=== PATIENT | male | born 1950 | race Caucasian/White ===

== ENCOUNTER → 2024-04-13 08:37 | Outpatient (BNVA) | payer MEDICARE, BC, SELFPAY | PROVIDERS: PCP Family Medicine; Referring Provider Family Medicine; Visit Provider Podiatrist | DX: L97.322 Non-pressure chronic ulcer of left ankle with fat layer exposed (principal); E11.622 Type 2 diabetes mellitus with other skin ulcer; N18.30 Chronic kidney disease, stage 3 unspecified; I12.9 Hypertensive chronic kidney disease with stage 1 through stage 4 chronic kidney disease, or unspecified chronic kidney disease; I50.9 Heart failure, unspecified; D63.1 Anemia in chronic kidney disease; E11.9 Type 2 diabetes mellitus without complications | CPT/HCPCS: 11042; 29580; 99204; 29850 ==

== ENCOUNTER 2024-04-14 02:07 | Outpatient (CLI) | payer MEDICARE, BC, SELFPAY ==
--- NOTE | 2024-04-14 08:59 | DI.RAD_ITS ---
Exam(s) XR ANKLE LT COMPLETE EXAM: XR ANKLE LT COMPLETE CLINICAL HISTORY: ? osteomyelitis fibula,non healing ulcer lt lower ext,L97.602 TECHNIQUE: 2D digital imaging was performed of the left ankle. Three images were obtained. AP, lat eral and oblique views were obtained. COMPARISON: No exams were available for comparison FINDINGS: BONES: No acute fracture is present. No bony destructive lesion is seen. There is an enthesophyte at the posterior calcaneus. JOINTS:The ankle mortise is normally aligned. SOFT TISSUE: There is soft tissue swelling about the ankle particularly laterally. No soft tissue ga s is seen. IMPRESSION: No radiographic evidence to suggest acute osteomyelitis. DATA REPOSITORY: RADIATION DOSE DELIVERED:
--- NOTE | 2024-04-14 09:00 | DI.RAD_ITS ---
Exam(s) XR CHEST 2V PA LATERAL EXAM: XR CHEST 2V PA LATERAL CLINICAL HISTORY: pre-op clearance, dx of CHF,z01.818 TECHNIQUE: 2D digital imaging was performed of the chest. Two images were obtained. PA and lateral views were obtained. COMPARISON: No exams were available for comparison FINDINGS: MEDIASTINUM: Normal. HEART: Normal. PULMONARY VASCULATURE: Normal. LUNGS: Clear. PLEURAL SPACE: No pleural effusion or pneumothorax. BONE:Within normal limits for the patient's age. OTHER FINDINGS:Normal. IMPRESSION: No acute pulmonary findings. DATA REPOSITORY: RADIATION DOSE DELIVERED:
--- NOTE | 2024-04-14 09:00 | DI.RAD_ITS ---
Exam(s) XR ANKLE RT COMPLETE EXAM: XR ANKLE RT COMPLETE CLINICAL HISTORY: Comparison views,pain rt ankle, m25.571. TECHNIQUE: 2D digital imaging was performed of the right ankle. Three images were obtained. AP, la teral and oblique views were obtained. COMPARISON: No exams were available for comparison FINDINGS: BONES: No acute fracture is present. No bony destructive lesion is seen. There is a small posterior calcaneal enthesophyte. JOINTS: The ankle mortise is normally aligned. SOFT TISSUE: Normal. IMPRESSION: No acute abnormality. DATA REPOSITORY: RADIATION DOSE DELIVERED:
[2024-04-14 09:43] LABS: Abs Immature Grans 0.04 10^3/uL (0.0-0.06); Absolute Basophil Count 0.07 10^3/uL (0.0-0.2); Absolute Eosinophil Count 0.59 10^3/uL (0.0-0.7); Absolute Lymphocyte Count 1.21 10^3/uL (1.2-3.4); Absolute Neutrophil Count 4.99 10^3/uL (1.2-6.7); Basophils % 0.9 %; Eosinophils % 7.8 %; HCT 41.5 % (40.0-50.0); HGB 13.3 g/dL (13.5-17.5); Immature Grans % 0.5 %; Lymphocytes % 15.9 %; MCV 94 fL (80-95); MPV 11.5 fL (8.0-11.0); Monocytes % 9.2 %; Neutrophils % 65.7 %; Platelet Count 170 10^3/uL (130-400); RBC 4.44 10^6/uL (4.36-5.78); RDW 15.1 % (11.8-14.1); RDW-SD 51.1 fL
[2024-04-14 11:10] LABS: ALT 24 U/L (16-63); AST 20 U/L (15-37); Albumin 3.2 g/dL (3.4-5.0); Alkaline Phosphatase 122 U/L (46-116); Anion Gap 9.9 mmol/L (3-11); BUN 27 mg/dL (7-18); Bilirubin, Total 0.33 mg/dL (0.2-1.0); CO2 25.1 mmol/L (21.0-32.0); CREATININE 1.8 mg/dL (0.70-1.30); Calcium 9.6 mg/dL (8.5-10.1); Chloride 108 mmol/L (98-107); Estimated GFR 38.77 (mL/min/1.73m2); Glucose 201 mg/dL (74-106); Potassium 4.7 mmol/L (3.5-5.1); Sodium 143 mmol/L (136-145); Total Protein 7.6 g/dL (6.4-8.2)
== END 2024-04-14 02:27 ==
LOC: DI 02:08
PROVIDERS: PCP Family Medicine; Visit Provider Podiatrist
DX: Z01.818 Encounter for other preprocedural examination; M25.571 Pain in right ankle and joints of right foot; M25.572 Pain in left ankle and joints of left foot
CPT/HCPCS: 36415; 80053; 71046; 73610; 85025

== ENCOUNTER 2024-04-19 05:46 | Day surgery (SDC) | payer MEDICARE, BC, SELFPAY ==
[2024-04-19] VITALS (22 sets, daily range): BP systolic 117–160; BP diastolic 44–69; PULSE 69–87; RESP 16–28; TEMP 36–36.5; O2SAT 92–96; BMI 33.0
--- NOTE | 2024-04-19 06:44 | ANES.PREOP_ITS ---
General Info Date of Service Date Performed: 04/19/24 Height: 5 ft 7 in Weight: 95.7 kg Body Mass Index (BMI): 33.0 Surgical Procedure: Operation Date: 04/19/24 07:40 Proposed Procedure Side Surgeon p Excisional Wound Debridement, Possible Tissue Biopsy Ankle Left Kitty Mccoy DPM Meds Allergies and Home Medications Allergies Allergy/AdvReac Type Severity Reaction Status Date / Time No Known Allergies Allergy Verified 04/19/24 06:13 Home Medication ?Medication ?Instructions ?Recorded allopurinol 300 mg tablet 300 mg PO DAILY 04/05/24 amlodipine 10 mg tablet 10 mg PO DAILY 04/05/24 colchicine 0.6 mg tablet 0.6 mg PO DAILY 04/05/24 empagliflozin 10 mg tablet 10 mg PO DAILY 04/05/24 (Jardiance) folic acid 1 mg tablet 1 mg PO DAILY 04/05/24 gemfibrozil 600 mg tablet 600 mg PO DAILY 04/05/24 insulin aspart U-100 100 unit/mL 13 unit subcut TID 04/05/24 subcutaneous solution (Novolog U-100 Insulin aspart) insulin glargine 100 unit/mL (3 80 unit subcut BID 04/05/24 mL) subcutaneous pen (Lantus Solostar U-100 Insulin) metoprolol tartrate 50 mg tablet 50 mg PO BID 04/05/24 multivitamin 1 tab PO DAILY 04/05/24 olmesartan 20 mg tablet 20 mg PO DAILY 04/05/24 oxycodone 5 mg tablet 5 mg PO Q6H PRN 04/05/24 rosuvastatin 10 mg tablet 10 mg PO DAILY 04/05/24 sitagliptin phosphate 100 mg 100 mg PO DAILY 04/05/24 tablet (Januvia) tamsulosin 0.4 mg capsule 0.4 mg PO DAILY 04/05/24 torsemide 20 mg tablet 20 mg PO BID 04/05/24 collagenase clostridium histo. 250 1 applic topical DAILY #30 grams 04/14/24 unit/gram topical ointment (Santyl) Current Visit Medications: Current Medications Generic Name Dose Route Start Last Admin Trade Name Freq PRN Reason Stop Dose Admin Ringer's Solution 1,000 mls @ 30 mls/hr 04/19/24 06:00 IV 04/19/24 23:59 INFUSION RAFIA Cefazolin Sodium/Dextrose 2 gm in 50 mls @ 100 mls/hr 04/19/24 06:00 Ancef Duplex IVPB 04/19/24 23:59 PREOP RAFIA IV Miscellaneous Supplies 1 each 04/19/24 06:00 Iv Access IV 04/19/24 23:59 DIRECTED RAFIA Sodium Chloride 0 ml 04/19/24 06:00 Normal Saline Flush 10 Ml Syr IV 04/19/24 23:59 PRN PRN Sodium Chloride 0 ml 04/19/24 06:00 Normal Saline 10 Ml Vial IJ 04/19/24 23:59 DIRECTED PRN Sterile Water 0 ml 04/19/24 06:00 Water,Injection,Sterile 10 Ml Vial IJ 04/19/24 23:59 DIRECTED PRN PFSH Active Problems Active Problems: Problem Status Onset Code Pain in right ankle Acute M25.571 Diabetic ulcer of left ankle Acute E11.622, L97.329 Nonhealing ulcer of left lower extremity Acute L97.929 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 Acute L97.322 Ulcer of left lower extremity Acute L97.929 Mixed hyperlipidemia Acute E78.2 Enlarged prostate Acute N40.0 HTN (hypertension) Chronic I10 Hyperparathyroidism Acute E21.3 Hypercalcemia Acute E83.52 Gout Chronic M10.9 Glaucoma Chronic H40.9 Enthesopathy of hip region Acute M76.899 Stage 3 chronic kidney disease due to benign hypertension Acute I12.9, N18.30 CHF (congestive heart failure) Chronic I50.9 Atopic dermatitis Acute L20.9 Arthritis Acute M19.90 Anemia in CKD (chronic kidney disease) Acute N18.9, D63.1 Acid reflux Chronic K21.9 Type 2 diabetes mellitus Acute E11.9 Medical History Medical History Pemphigoid, benign mucous membrane ROXANA (acute kidney injury) Psychosexual dysfunction with inhibited sexual excitement Olecranon bursitis Surgical History Surgical History History of testicular surgery History of shoulder surgery right History of varicose vein ligation Tobacco Smoking/Tobacco Use Status: Former Tobacco Use Alcohol Alcohol Intake: current Alcohol intake frequency: a few times a month Substance Use Substance use: Never Vital Signs and Lab Results Vital Signs Most Recent Vital Signs in EMR: Most Recent Vital Signs Temp Pulse Resp BP Pulse Ox 36.5 C 69 18 125/59 L 96 04/19/24 06:20 04/19/24 06:20 04/19/24 06:20 04/19/24 06:20 04/19/24 06:20 Point of Care Results Point of Care Results: Finger Stick Blood Glucose 104 04/19/24 06:33 Lab Results Blood Type / Crossmatch: No Data to Display Complete Blood Count: White Blood Count 7.60 10^3/uL (4.4-10.8) 04/14/24 09:28 Red Blood Count 4.44 10^6/uL (4.36-5.78) 04/14/24 09:28 Hemoglobin 13.3 g/dL (13.5-17.5) L 04/14/24 09:28 Hematocrit 41.5 % (40.0-50.0) 04/14/24 09:28 Platelet Count 170 10^3/uL (130-400) 04/14/24 09:28 Complete Metabolic Panel: Sodium 143 mmol/L (136-145) 04/14/24 09:28 Potassium 4.7 mmol/L (3.5-5.1) 04/14/24 09:28 Chloride 108 mmol/L (98-107) H 04/14/24 09:28 Carbon Dioxide 25.1 mmol/L (21.0-32.0) 04/14/24 09:28 BUN 27 mg/dL (7-18) H 04/14/24 09:28 Creatinine 1.8 mg/dL (0.70-1.30) H 04/14/24 09:28 Est GFR (CKD-EPI 2020) 38.77 (mL/min/1.73m2) 04/14/24 09:28 Calcium 9.6 mg/dL (8.5-10.1) 04/14/24 09:28 Albumin 3.2 g/dL (3.4-5.0) L 04/14/24 09:28 Glucose 201 mg/dL (74-106) H 04/14/24 09:28 Hemoglobin A1c 6.7 % (4.5-5.7) H 04/09/24 11:14 Liver Function Panel: Alanine Aminotransferase (ALT/SGPT) 24 U/L (16-63) 10/16/24 09: 28 Aspartate Amino Transf (AST/SGOT) 20 U/L (15-37) 04/14/24 09:28 Coagulation Panel: No Data to Display Cardiac Panel: No Data to Display Arterial Blood Gas: No Data to Display Venous Blood Gas: No Data to Display Pancreas Panel: No Data to Display Thyroid Panel: No Data to Display Infectious Disease: No Data to Display Blood Cultures: No Data to Display Toxicology Panel: No Data to Display Anesthesia Assessment and Plan Anesthesia History Personal History: No History of Anesthesia Complications Family History: No Family History of Anesthesia Complications Exercise Tolerance Exercise Tolerance: Metabolic Equivalents>4 Pertinent Negatives Pertinent Negatives: No Symptoms of GERD Cardiac & Pulmonary Exam Cardiac Exam: Normal S1/S2 Heart Sounds Pulmonary Exam: Clear Bilateral Breath Sounds Implantable Cardiac Device Does patient have a Pacemaker or an ICD?: No Airway Exam Known Difficult Airway: No Mallampati Class: 2 Mouth Opening: Normal (> 3cm) Thyromental Distance: Greater than 3 cm Neck Range of Motion: Full ROM Neck Circumference: Thick Teeth Condition: Normal Dentition ASA Classification ASA Score: ASA 3 Emergency Case?: No NPO Status NPO Status: NPO Clears >2 hours, Solids >8 hours Anesthesia Plan Resuscitation Status: Full Code Anesthesia Technique: General Anesthesia Airway Planned: LMA Monitors Used: Standard Monitors
[2024-04-19] MEDS: Lactated Ringers 1,000 ML 30 ML IV (06:49)
[2024-04-19] MEDS: ceFAZolin 2 GM/50 ML BAG IVPB (07:37)
[2024-04-19] MEDS: Lidocaine 1% Pres-Free 30 ML VIAL (07:54)
--- NOTE | 2024-04-19 08:34 | PDOC.DSDIS_ITS ---
Date of service: 04/19/24 Time of Service: 07:30 Discharge Plan Disposition Patient Disposition: Home Condition: Stable Discharge Details Attending Provider: Kitty Mccoy Primary Care Provider: Tommie Metzger Gilman Meds and New Rx's Prescriptions: No Action allopurinol 300 mg tablet 300 mg PO DAILY amlodipine 10 mg tablet 10 mg PO DAILY colchicine 0.6 mg tablet 0.6 mg PO DAILY folic acid 1 mg tablet 1 mg PO DAILY gemfibrozil 600 mg tablet 600 mg PO DAILY Januvia 100 mg tablet 100 mg PO DAILY Jardiance 10 mg tablet 10 mg PO DAILY insulin glargine [Lantus Solostar U-100 Insulin] 100 unit/mL (3 mL) insulin pen 80 unit subcut BID metoprolol tartrate 50 mg tablet 50 mg PO BID multivitamin Tablet 1 tab PO DAILY insulin aspart U-100 [Novolog U-100 Insulin aspart] 100 unit/mL solution 13 unit subcut TID Rx Instructions: AC, TID olmesartan 20 mg tablet 20 mg PO DAILY rosuvastatin 10 mg tablet 10 mg PO DAILY oxycodone 5 mg tablet 5 mg PO Q6H PRN tamsulosin 0.4 mg capsule 0.4 mg PO DAILY torsemide 20 mg tablet 20 mg PO BID Santyl 250 unit/gram ointment 1 applic topical DAILY Qty: 30 5RF Rx Instructions: Left Heel wound measurements: 4.8cm x 3.5cm. L lateral Ankle wound measurements: 6.6cm x 3.0cm Discharge Instructions Stand Alone Forms: Podiatry Instructions-DSU Equipment/Supplies: Non-Weight Bearing Crutches Activity:: Elevate Remove Dressings/Wound Care:: Do Not Remove Shower/Bathe:: Cover Diet:: Normal Diet Discharge Orders Discharge Orders: Discharge Order (Routine); Ordered 04/19/24 Ordered By: Kitty Mccoy DS: Diagnosis Discharge Diagnosis (1) Diabetic ulcer of left ankle: Status: Acute (2) Nonhealing ulcer of left lower extremity: Status: Acute (3) 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: Status: Acute (4) Ulcer of left lower extremity: Status: Acute (5) Pressure ulcer with necrosis of soft tissues through to underlying muscle, tendon, or bone: Status: Acute
[2024-04-19] MEDS: fentaNYL 100 MCG/2 ML VIAL IVP ×2 (08:40→08:52)
--- NOTE | 2024-04-19 09:24 | W.ANESPOSTOP ---
Postoperative Evaluation Date, Time and Location Date Performed: 04/19/24 Time Performed: 09:24 Patient Location: Day Surgery Unit Vital Signs Most Recent Imported Vital Signs: Most Recent Vital Signs Temp Pulse Resp BP Pulse Ox 36.0 C L 87 28 H 146/69 H 94 04/19/24 09:13 04/19/24 09:13 04/19/24 09:13 04/19/24 09:13 04/19/24 09:13 Pain Score Most Recent Pain Score: Most Recent Pain Score Pain Level 1 04/19/24 08:58 Assessment Mental Status: Awake (Alert & Oriented to Patient Baseline) Airway and Respiratory Function: Patent airway with normal (patient baseline) respiratory exam Cardiovascular Function: Hemodynamically Stable Hydration Status: Adequately Hydrated Nausea & Vomiting: No Nausea or Vomiting Pain: Pt. Denies Any Pain Peripheral Nerve Block: Patient did not receive a nerve block
--- NOTE | 2024-04-19 09:46 | W.PM.OP ---
Date of service: 04/19/24 Time of Service: 07:30 Operative Note Operative Note DATE OF PROCEDURE: 04/19/24 PRE-OP DIAGNOSIS: 1. Full thickness ulcer, achilles tendon exposed, left ankle. 2. Full thickness ulcer, fat layer exposed, lateral ankle, left PROCEDURE: Excisional wound debridement, including tendon and subcutaneous tissue, left ankle SURGEON: Kitty Mccoy ANESTHESIA TYPE: Local By Surgeon (20 mL 1% lidocaine plain preoperatively) Refer to Anesthesia Record ESTIMATED BLOOD LOSS: 5 COMPLICATIONS: None Patient was transported to: PACU Patient's condition: stable Findings: Left lateral ankle ulcer measures 6.5 x 2.5 x 0.3 cm, postdebridement, the base is granular with healthy bleeding tissue noted. The borders are irregular, there is no periwound erythema, there is edema, no probe to bone or capsule, no tunneling no undermining, no bogginess, no crepitus no fluctuance no proximal streaking. No purulence no malodor Left posterior heel wound measures 4.0 x 3.5 x 0.4 cm, there is 2.0 x 4.0 cm Achilles tendon exposed, the base of the wound around the tendon is healthy, bleeding is granular postdebridement, There is no periwound erythema, there is edema, no probe to bone or capsule, there is Achilles tendon exposed, no proximal streaking, no purulence no malodor Procedure Description: Patient was identified in preop holding. Site was marked. Patient was then brought to the operating room, placed on the operating table supine position with the anesthesia team. After induction of general anesthesia local analgesia was obtained using 20 mL of lidocaine plain preoperatively around the ulcer. The left lower extremity was then scrubbed, prepped and draped in the usual aseptic manner. Attention was directed to the lateral ulcer of the left ankle, the ulcer is noted to be directly overlying the lateral malleolus. Using a sterile #15 blade as well as Versajet sharp, excisional debridement was performed until healthy, bleeding tissue was noted, all necrotic, nonviable tissue including subcutaneous tissue was debrided. A small soft tissue specimen was obtained sharply and sent for cultures. Attention was then directed to the posterior wound where heavy necrotic tissue was noted. The ulcer was debrided using a sterile #15 blade as well as Versajet to excisionally debride all necrotic, nonviable tissue this included subcutaneous tissue around the Achilles tendon as well as some necrotic, already exposed paratenon exposing healthy bleeding granular base around the Achilles tendon, healthy yellow/white appearing Achilles tendon. There is no tunneling no probing to bone and no undermining at this time. A compressive dressing consisting of 4 x 4 and Coban was applied to achieve hemostasis. This was then removed. Dressings were then applied with Xeroform gauze, 4 x 4, Kerlix, Webril and Coban for compression. Patient tolerated the procedure and anesthesia well with vital signs stable and vascular status intact to the left lower extremity. He was transferred to PACU for further monitoring then transferred to same-day where a posterior splint with a sugar-tong was applied to help restrict motion at the ankle joint. This patient has a 4 cm x 2.0 cm of Achilles tendon exposed. This will be a challenging wound to heal considering the location and motion available here. I have placed a referral to [facility] plastics to see if they can help with the flap closure. Until this is accomplished, I will continue local wound care with debridement as well as a graft application. This ulcer has been present for more than 30 days and has not demonstrated sufficient healing, it has not decreased in size by 50%, at this time I highly recommend advanced wound care products so as to allow this wound to heal as there is risk for developing infection as well as risk for amputation. Patient has an appointment scheduled on where we will finalize these plans.
--- NOTE | 2024-04-19 10:44 | PT.INIE ---
PT Notes Physical Therapy Day Surgery Initial Evaluation Date: 04-19-2024 Referring Doctor:Dr Mccoy PT Orders: PT CONSULT: limited mobility Precautions: NWB LLE with device Patient Profile/Admitting Diagnosis: Pt is 73 yo male presenting s/p surgical debridement of Left ankle heel including tendon and subcutaneous tissue. Due to pressure ulcer with necrosis of soft tissue through to underlying muscle tendon. pt placed in post op splint and made NWB LLE. PMHX: Diabetic ulcer left ankle nonhealing ulcer left lower extremity, mixed hyperlipidemia, enlarged prostate, HTN, hyperparathyroidism, hypocalcemia, gout, glaucoma, enthesopathy of hip region, CKD stage III, CHF, atopic dermatitis, bradycardia,, acid reflux, type 2 diabetes mellitus Social History/Home Situation: Lives with single-family home with ramp to enter. Patient reports independent ambulation without device, independent ADLs. provides meals housecleaning and can assist with ADLs as needed at this time. Patient reports bathroom is large with grab bars near the toilet standard height toilet. Equipment Owned/DME: Tub seat, grab bars near toilet, Subjective:Pt reports he is feeling okay. He stated he was aware that he has to maintain NWB to LLE until Dr Mccoy advances the weightbearing. Objective: General Observation: Awake male semireclined on stretcher present at bedside patient agreeable to participate in assessment Mental Status: Alert and oriented x 3 Pain: 3/10 left ankle ROM: [] Right Upper Extremity: WNL Left Upper Extremity: WNL Right Lower Extremity: WNL Left Lower Extremity: Hip and knee within normal limits left ankle not tested secondary to splinting Strength: [] Right Upper Extremity: 5/5 Left Upper Extremity: 5/5 Right Lower Extremity: 4/5 Left Lower Extremity: Hip and knee patient demonstrates full active range of motion against gravity no MMT/resistance secondary to left cast Sensation: Intact Bed Mobility/Transfers: Supine to sit independent Sit to stand supervision with cues for hand placement to push up Stand to sit supervision with cues for hand placement to reach back Bed to chair supervision with cues for FWW management to keep walker closer to body Gait: Contact-guard assist with FWW 35 feet x 2 with cues for proper positioning of FWW close to body to allow him to hop and maintain nonweightbearing status left lower extremity Balance: Static Sitting: good Dynamic Sitting: Fair + Static Standing: Fair Dynamic Standing: Fair- Special Tests: Mobility Limitations Standardized Measure [facility] AM-PAC 6 clicks Basic Mobility Inpatient Short Form: Raw Score: 16 CMS Score:54.16% Informed Consent/Education: Patient instructed in purpose of PT consult. Patient and educated in maintaining nonweightbearing status at all times including while sitting and sleeping. Patient's able to provide proper cueing for hand placement on sit to stand. Assessment: Patient presents with clinical signs and symptoms consistent with current/admitting diagnoses that have resulted to mobility limitations, gait instability, generalized weakness, and impairment of motor control as demonstrated by the following impairment level findings: 1. Decreased strength to left LE major muscle groups 2. Impaired standing balance 3. Limitation of joint range of motion in left ankle 4. Nonweightbearing left lower extremity moderate 5. Impaired functional activity tolerance Impairments are contributing to the following functional limitations: 1. Inability to safely ambulate without assistive device 2. Increase completion time for mobility ADL performance 3. Increased fall risk 4. Decline in transfer ability 5. Increased time to complete ADLs/functional mobility safely Patient is assessed as a moderate complexity based on the following: History: 73-year-old male with impairment level findings, functional limitations, and past medical history as indicated above Examination: Demonstrable impairment in strength, balance, and mobility level with underlying impairments and functional limitations as documented above Presentation: Stable Decision Making: Moderate Goals: N/A. Plan of Care/Treatment Plan: N/A. DISCHARGE RECOMMENDATIONS: PT TREATMENT CODE/TIME: 52945 x 20 minutes for 1 unit, 42999 x 12 minutes for 1 unit, [id number] Thank you for the opportunity to participate in the care of this patient. Please sign an return this page within 30 days if you agree with the above POC. Thank you! Physician Signature Date [facility]
== END 2024-04-19 10:50 | disposition home or self-care (01) ==
PROVIDERS: PCP Family Medicine; Visit Provider Podiatrist
PROC: (CPT 27614; principal; 2024-04-19 07:30)
DX: E11.622 Type 2 diabetes mellitus with other skin ulcer (principal); L97.322 Non-pressure chronic ulcer of left ankle with fat layer exposed; L97.328 Non-pressure chronic ulcer of left ankle with other specified severity; Z79.84 Long term (current) use of oral hypoglycemic drugs; Z79.4 Long term (current) use of insulin; I13.0 Hypertensive heart and chronic kidney disease with heart failure and stage 1 through stage 4 chronic kidney disease, or unspecified chronic kidney disease; I50.9 Heart failure, unspecified; E11.22 Type 2 diabetes mellitus with diabetic chronic kidney disease; N18.30 Chronic kidney disease, stage 3 unspecified
CPT/HCPCS: 27614; 11043; 00123; 97162; 97530; 87070; 87075; 87205; J0690; J1100; J2003; J2371; J2405; J2704; J3010

== ENCOUNTER → 2024-04-22 14:25 | Outpatient (BNVA) | payer MEDICARE, BC, SELFPAY | PROVIDERS: PCP Family Medicine; Referring Provider Family Medicine; Visit Provider Podiatrist | DX: Z98.890 Other specified postprocedural states (principal); L97.322 Non-pressure chronic ulcer of left ankle with fat layer exposed; E11.622 Type 2 diabetes mellitus with other skin ulcer; I12.9 Hypertensive chronic kidney disease with stage 1 through stage 4 chronic kidney disease, or unspecified chronic kidney disease; N18.30 Chronic kidney disease, stage 3 unspecified; I50.9 Heart failure, unspecified; D63.1 Anemia in chronic kidney disease | CPT/HCPCS: 11043; 11046; 29425; 29581 ==

== ENCOUNTER 2024-04-26 07:20 | Day surgery (SDC) | payer MEDICARE, BC, SELFPAY ==
[2024-04-26 07:30] VITALS: BP 147/59; PULSE 74; RESP 17; TEMP 36.3; O2SAT 97
[2024-04-26 08:06] VITALS: BMI 33.4
--- NOTE | 2024-04-26 08:06 | ANES.PREOP_ITS ---
General Info Date of Service Date Performed: 04/26/24 Height: 5 ft 7 in Weight: 96.8 kg Body Mass Index (BMI): 33.4 Surgical Procedure: Operation Date: 04/26/24 08:55 Proposed Procedure Side Surgeon p Excisional Ulcer Debridement, Preparation of Wound Bed, Graft Application Ankle Left Kitty Mccoy DPM Meds Allergies and Home Medications Allergies Allergy/AdvReac Type Severity Reaction Status Date / Time No Known Allergies Allergy Verified 04/26/24 08:01 Home Medication ?Medication ?Instructions ?Recorded allopurinol 300 mg tablet 300 mg PO DAILY 04/05/24 amlodipine 10 mg tablet 10 mg PO DAILY 04/05/24 colchicine 0.6 mg tablet 0.6 mg PO DAILY 04/05/24 empagliflozin 10 mg tablet 10 mg PO DAILY 04/05/24 (Jardiance) folic acid 1 mg tablet 1 mg PO DAILY 04/05/24 gemfibrozil 600 mg tablet 600 mg PO DAILY 04/05/24 insulin aspart U-100 100 unit/mL 13 unit subcut TID 04/05/24 subcutaneous solution (Novolog U-100 Insulin aspart) insulin glargine 100 unit/mL (3 60 unit subcut BID 04/05/24 mL) subcutaneous pen (Lantus Solostar U-100 Insulin) metoprolol tartrate 50 mg tablet 50 mg PO BID 04/05/24 multivitamin 1 tab PO DAILY 04/05/24 olmesartan 20 mg tablet 20 mg PO DAILY 04/05/24 oxycodone 5 mg tablet 5 mg PO Q6H PRN 04/05/24 rosuvastatin 10 mg tablet 10 mg PO DAILY 04/05/24 sitagliptin phosphate 100 mg 100 mg PO DAILY 04/05/24 tablet (Januvia) tamsulosin 0.4 mg capsule 0.4 mg PO DAILY 04/05/24 torsemide 20 mg tablet 20 mg PO BID 04/05/24 collagenase clostridium histo. 250 1 applic topical DAILY #30 grams 04/14/24 unit/gram topical ointment (Santyl) lidocaine 5 % topical cream 1 applic topical BID pain #15 grams 04/19/24 Current Visit Medications: Current Medications Generic Name Dose Route Start Last Admin Trade Name Freq PRN Reason Stop Dose Admin Ringer's Solution 1,000 mls @ 30 mls/hr 04/26/24 06:00 IV 04/26/24 23:59 INFUSION RAFIA Cefazolin Sodium 3,000 mg/ 100 mls @ 200 mls/hr 04/26/24 06:00 Sodium Chloride IVPB 04/26/24 23:59 PREOP RAFIA IV Miscellaneous Supplies 1 each 04/26/24 06:00 Iv Access IV 04/26/24 23:59 DIRECTED RAFIA Sodium Chloride 0 ml 04/26/24 06:00 Normal Saline Flush 10 Ml Syr IV 04/26/24 23:59 PRN PRN Sodium Chloride 0 ml 04/26/24 06:00 Normal Saline 10 Ml Vial IJ 04/26/24 23:59 DIRECTED PRN Sterile Water 0 ml 04/26/24 06:00 Water,Injection,Sterile 10 Ml Vial IJ 04/26/24 23:59 DIRECTED PRN PFSH Active Problems Active Problems: Problem Status Onset Code Pressure ulcer with necrosis of soft tissues through to underlying muscle, tendon, or bone Acute L89.94 Pain in right ankle Acute M25.571 Diabetic ulcer of left ankle Acute E11.622, L97.329 Nonhealing ulcer of left lower extremity Acute L97.929 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 Acute L97.322 Ulcer of left lower extremity Acute L97.929 Mixed hyperlipidemia Acute E78.2 Enlarged prostate Acute N40.0 HTN (hypertension) Chronic I10 Hyperparathyroidism Acute E21.3 Hypercalcemia Acute E83.52 Gout Chronic M10.9 Glaucoma Chronic H40.9 Enthesopathy of hip region Acute M76.899 Stage 3 chronic kidney disease due to benign hypertension Acute I12.9, N18.30 CHF (congestive heart failure) Chronic I50.9 Atopic dermatitis Acute L20.9 Arthritis Acute M19.90 Anemia in CKD (chronic kidney disease) Acute N18.9, D63.1 Acid reflux Chronic K21.9 Type 2 diabetes mellitus Acute E11.9 Medical History Medical History Pemphigoid, benign mucous membrane ROXANA (acute kidney injury) Psychosexual dysfunction with inhibited sexual excitement Olecranon bursitis Surgical History Surgical History History of testicular surgery History of shoulder surgery right History of varicose vein ligation Tobacco Smoking/Tobacco Use Status: Former Tobacco Use Alcohol Alcohol Intake: current Alcohol intake frequency: a few times a month Substance Use Substance use: Never Vital Signs and Lab Results Vital Signs Most Recent Vital Signs in EMR: Most Recent Vital Signs Temp Pulse Resp BP Pulse Ox 36.3 C L 74 17 147/59 H 97 04/26/24 07:30 04/26/24 07:30 04/26/24 07:30 04/26/24 07:30 04/26/24 07:30 Point of Care Results Point of Care Results: Finger Stick Blood Glucose 132 04/26/24 07:54 Lab Results Blood Type / Crossmatch: No Data to Display Complete Blood Count: White Blood Count 7.60 10^3/uL (4.4-10.8) 04/14/24 09:28 Red Blood Count 4.44 10^6/uL (4.36-5.78) 04/14/24 09:28 Hemoglobin 13.3 g/dL (13.5-17.5) L 04/14/24 09:28 Hematocrit 41.5 % (40.0-50.0) 04/14/24 09:28 Platelet Count 170 10^3/uL (130-400) 04/14/24 09:28 Complete Metabolic Panel: Sodium 143 mmol/L (136-145) 04/14/24 09:28 Potassium 4.7 mmol/L (3.5-5.1) 04/14/24 09:28 Chloride 108 mmol/L (98-107) H 04/14/24 09:28 Carbon Dioxide 25.1 mmol/L (21.0-32.0) 04/14/24 09:28 BUN 27 mg/dL (7-18) H 04/14/24 09:28 Creatinine 1.8 mg/dL (0.70-1.30) H 04/14/24 09:28 Est GFR (CKD-EPI 2020) 38.77 (mL/min/1.73m2) 04/14/24 09:28 Calcium 9.6 mg/dL (8.5-10.1) 04/14/24 09:28 Albumin 3.2 g/dL (3.4-5.0) L 04/14/24 09:28 Glucose 201 mg/dL (74-106) H 04/14/24 09:28 Hemoglobin A1c 6.7 % (4.5-5.7) H 04/09/24 11:14 Liver Function Panel: Alanine Aminotransferase (ALT/SGPT) 24 U/L (16-63) 04/14/24 09: 28 Aspartate Amino Transf (AST/SGOT) 20 U/L (15-37) 04/14/24 09:28 Coagulation Panel: No Data to Display Cardiac Panel: No Data to Display Arterial Blood Gas: No Data to Display Venous Blood Gas: No Data to Display Pancreas Panel: No Data to Display Thyroid Panel: No Data to Display Infectious Disease: No Data to Display Blood Cultures: No Data to Display Toxicology Panel: No Data to Display Anesthesia Assessment and Plan Anesthesia History Personal History: No History of Anesthesia Complications Family History: No Family History of Anesthesia Complications Exercise Tolerance Exercise Tolerance: Metabolic Equivalents>4 Pertinent Negatives Pertinent Negatives: No Symptoms of GERD Cardiac & Pulmonary Exam Cardiac Exam: Normal S1/S2 Heart Sounds Pulmonary Exam: Clear Bilateral Breath Sounds Implantable Cardiac Device Does patient have a Pacemaker or an ICD?: No Airway Exam Known Difficult Airway: No Mallampati Class: 2 Mouth Opening: Normal (> 3cm) Thyromental Distance: Greater than 3 cm Neck Range of Motion: Full ROM Neck Circumference: Thick Teeth Condition: Normal Dentition ASA Classification ASA Score: ASA 3 Emergency Case?: No NPO Status NPO Status: NPO Clears >2 hours, Solids >8 hours Anesthesia Plan Resuscitation Status: Full Code Anesthesia Technique: General Anesthesia Airway Planned: LMA Monitors Used: Standard Monitors
[2024-04-26] MEDS: Lactated Ringers 1,000 ML 30 ML IV (08:13)
[2024-04-26] MEDS: ceFAZolin 3,000 MG in Normal Saline 100 ML 200 MG IVPB (09:38)
[2024-04-26] MEDS: Lidocaine 1% Pres-Free 30 ML VIAL (09:51)
[2024-04-26 10:51] VITALS: BP 140/69; PULSE 83; RESP 17; TEMP 36.2; O2SAT 94
--- NOTE | 2024-04-26 10:55 | W.PM.DSUDISC ---
Date of service: 04/26/24 Time of Service: 10:55 Discharge Plan Disposition Patient Disposition: Home Condition: Stable Discharge Details Attending Provider: Kitty Mccoy Primary Care Provider: Tommie Metzger [place] Meds and New Rx's Prescriptions: No Action allopurinol 300 mg tablet 300 mg PO DAILY amlodipine 10 mg tablet 10 mg PO DAILY colchicine 0.6 mg tablet 0.6 mg PO DAILY folic acid 1 mg tablet 1 mg PO DAILY gemfibrozil 600 mg tablet 600 mg PO DAILY Januvia 100 mg tablet 100 mg PO DAILY Jardiance 10 mg tablet 10 mg PO DAILY insulin glargine [Lantus Solostar U-100 Insulin] 100 unit/mL (3 mL) insulin pen 60 unit subcut BID metoprolol tartrate 50 mg tablet 50 mg PO BID multivitamin Tablet 1 tab PO DAILY insulin aspart U-100 [Novolog U-100 Insulin aspart] 100 unit/mL solution 13 unit subcut TID Rx Instructions: AC, TID olmesartan 20 mg tablet 20 mg PO DAILY rosuvastatin 10 mg tablet 10 mg PO DAILY oxycodone 5 mg tablet 5 mg PO Q6H PRN tamsulosin 0.4 mg capsule 0.4 mg PO DAILY torsemide 20 mg tablet 20 mg PO BID Santyl 250 unit/gram ointment 1 applic topical DAILY Qty: 30 5RF Rx Instructions: Left Heel wound measurements: 4.8cm x 3.5cm. L lateral Ankle wound measurements: 6.6cm x 3.0cm lidocaine 5 % cream 1 applic topical BID Qty: 15 0RF Discharge Instructions Stand Alone Forms: Anesthesia Discharge Inst., Rodney Summers ([facility]), Podiatry Instructions-[facility] Referrals: Kitty Mccoy DPM [[facility] STAFF PHYSICIAN] - 04/29/24 1:15 pm Equipment/Supplies: Walker Activity:: Elevate Remove Dressings/Wound Care:: Do Not Remove Shower/Bathe:: Cover Diet:: Carb Counting Discharge Orders Discharge Orders: Discharge Order (Routine); Ordered 04/26/24 Ordered By: Kitty Mccoy DS: Diagnosis Discharge Diagnosis (1) Pressure ulcer with necrosis of soft tissues through to underlying muscle, tendon, or bone: Status: Acute (2) Diabetic ulcer of left ankle: Status: Acute (3) Nonhealing ulcer of left lower extremity: Status: Acute (4) 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: Status: Acute (5) Ulcer of left lower extremity: Status: Acute (6) Stage 3 chronic kidney disease due to benign hypertension: Status: Acute (7) Type 2 diabetes mellitus: Status: Acute
--- NOTE | 2024-04-26 10:57 | W.PM.OP ---
Date of service: 04/26/24 Time of Service: 10:57 Operative Note Operative Note DATE OF PROCEDURE: 04/26/24 PRE-OP DIAGNOSIS: Full-thickness ulcer left ankle with necrosis of Achilles tendon POST-OP DIAGNOSIS: same PROCEDURE: Excisional wound debridement including subcutaneous tissue and Achilles tendon, left ankle SURGEON: Kitty Mccoy Refer to Anesthesia Record ESTIMATED BLOOD LOSS: 2 PATHOLOGY: none sent Patient was transported to: same day Patient's condition: stable Implants: AmnioExcel, amniotic Allograft membrane 5x5 cm Cytal Wound Matrix 2-Layer 5x5cm MicroMatrix UBM Standard Particulate 200mg Indications: This is a 73-year-old male patient with longstanding ulceration to the posterior aspect of the left heel. Patient has had 1 OR wound debridement this past week. Patient was seen in office this past and the decision was made for return to the OR for ulcer debridement and graft application since there is no presence of infection at this time. I discussed all risks, benefits and possible complications of the procedure including but not limited to infection, bleeding, infection to the tendon, need for further surgery or amputation, DVT, and PE, stroke, MS or with anesthesia. Patient understands and agrees. Medical clearance recently obtained in chart. Contraindications noted to the procedure at this time. Findings: The ulcer is nearly 100% necrotic base with exposed tendon which also appears necrotic. Healthy bleeding noted upon wound debridement. Left lateral ulceration measures 5.7 x 1.5 x 0.2 cm. Left posterior ulceration measures 4.0 x 4.0 x 0.5 cm with 2 cm with of Achilles tendon exposed, length of the Achilles tendon exposes 4 cm. There is no periwound erythema, edema or drainage. No proximal streaking or lymphangitis noted. No malodor Procedure Description: Patient was identified in preop holding. Site was marked. Consent form signed reviewed in chart. Patient was brought to the operating room placed in supine position in the operating table with the anesthesia team. After induction of anesthesia local anesthesia was obtained using 20 mL of lidocaine 1% plain preoperatively. The left lower extremity was then scrubbed, prepped and draped in the usual aseptic manner. The Versajet was then primed. Attention was then directed to the lateral aspect of the left ankle where a full-thickness ulceration was noted. The Versajet was used to excisionally debride all necrotic tissue from this ulcer. Attention was then directed to the posterior aspect of the left ankle where full-thickness ulcer with Achilles tendon exposed was noted. The Versajet was then used to excisionally debride all necrotic, nonviable subcutaneous tissue as well as necrotic tendon. At this time, the wound bed was considered prepared for graft application. Amnio XL, amniotic allograft membrane was applied to the lateral ulceration. Next, micro matrix was applied to the posterior ulceration followed by Cytal. Next, jumpstart dressing was applied to both the ulcers and secured with Steri-Strips and Mastisol. Next, both the wounds were dressed with 4 x 4, Kerlix, Profore dressing, short leg splint which was then bivalved followed by an Sid wrap. Patient tolerated the procedure and anesthesia well and was in stable and vascular status intact to the left lower extremity. Patient was transferred to same-day for further monitoring. He will be discharged home when stable. Patient is to follow-up with me in office on .
--- NOTE | 2024-04-26 11:12 | W.ANESPOSTOP ---
Postoperative Evaluation Date, Time and Location Date Performed: 04/26/24 Time Performed: 11:12 Patient Location: Day Surgery Unit Vital Signs Most Recent Imported Vital Signs: Most Recent Vital Signs Temp Pulse Resp BP Pulse Ox 36.2 C L 83 17 140/69 94 04/26/24 10:51 04/26/24 10:51 04/26/24 10:51 04/26/24 10:51 04/26/24 10:51 Pain Score Most Recent Pain Score: Most Recent Pain Score Pain Level 0 04/26/24 10:51 Assessment Mental Status: Awake (Alert & Oriented to Patient Baseline) Airway and Respiratory Function: Patent airway with normal (patient baseline) respiratory exam Cardiovascular Function: Hemodynamically Stable Hydration Status: Adequately Hydrated Nausea & Vomiting: No Nausea or Vomiting Pain: Pt. Denies Any Pain Peripheral Nerve Block: Patient did not receive a nerve block
[2024-04-26 11:18] VITALS: BP 135/71; PULSE 86; RESP 17; TEMP 36.4; O2SAT 95
== END 2024-04-26 11:43 | disposition home or self-care (01) ==
PROVIDERS: PCP Family Medicine; Visit Provider Podiatrist
PROC: (CPT 15272; principal; 2024-04-26 08:45)
DX: E11.622 Type 2 diabetes mellitus with other skin ulcer (principal); E11.52 Type 2 diabetes mellitus with diabetic peripheral angiopathy with gangrene; I96 Gangrene, not elsewhere classified; L97.322 Non-pressure chronic ulcer of left ankle with fat layer exposed; I12.9 Hypertensive chronic kidney disease with stage 1 through stage 4 chronic kidney disease, or unspecified chronic kidney disease; E11.22 Type 2 diabetes mellitus with diabetic chronic kidney disease; N18.30 Chronic kidney disease, stage 3 unspecified
CPT/HCPCS: 15272; 15777; 15271; 15002; Q4137; Q4166; Q4118; 00123; J0690; J1100; J2371; J2405; J2704

== ENCOUNTER → 2024-04-29 13:07 | Outpatient (BNVA) | payer MEDICARE, BC, SELFPAY | PROVIDERS: PCP Family Medicine; Referring Provider Family Medicine; Visit Provider Podiatrist | DX: Z98.890 Other specified postprocedural states (principal); L97.322 Non-pressure chronic ulcer of left ankle with fat layer exposed; E11.622 Type 2 diabetes mellitus with other skin ulcer; I12.9 Hypertensive chronic kidney disease with stage 1 through stage 4 chronic kidney disease, or unspecified chronic kidney disease; N18.30 Chronic kidney disease, stage 3 unspecified; I50.9 Heart failure, unspecified; D63.1 Anemia in chronic kidney disease | CPT/HCPCS: 99024 ==

== ENCOUNTER 2024-05-03 06:26 | Day surgery (SDC) | payer MEDICARE, BC, SELFPAY ==
[2024-05-03 07:02] VITALS: BP 128/54; PULSE 73; RESP 18; TEMP 35.8; O2SAT 96
--- NOTE | 2024-05-03 07:05 | ANES.PREOP_ITS ---
General Info Date of Service Date Performed: 05/03/24 Height: 5 ft 7 in Weight: 96.8 kg Body Mass Index (BMI): 33.4 Surgical Procedure: Operation Date: 05/03/24 08:10 Proposed Procedure Side Surgeon p Excisional Ulcer Debridement, Preperation of Wound Bed Graft Application Ankle Left Kitty Mccoy DPM Meds Allergies and Home Medications Allergies Allergy/AdvReac Type Severity Reaction Status Date / Time No Known Allergies Allergy Verified 04/30/24 12:53 Home Medication ?Medication ?Instructions ?Recorded allopurinol 300 mg tablet 300 mg PO DAILY 04/05/24 amlodipine 10 mg tablet 10 mg PO HS 04/05/24 colchicine 0.6 mg tablet 0.6 mg PO DAILY 04/05/24 empagliflozin 10 mg tablet 10 mg PO DAILY 04/05/24 (Jardiance) folic acid 1 mg tablet 1 mg PO DAILY 04/05/24 gemfibrozil 600 mg tablet 600 mg PO DAILY 04/05/24 insulin aspart U-100 100 unit/mL 13 unit subcut TID 04/05/24 subcutaneous solution (Novolog U-100 Insulin aspart) insulin glargine 100 unit/mL (3 60 unit subcut HS 04/05/24 mL) subcutaneous pen (Lantus Solostar U-100 Insulin) metoprolol tartrate 50 mg tablet 50 mg PO BID 04/05/24 multivitamin 1 tab PO DAILY 04/05/24 olmesartan 20 mg tablet 20 mg PO DAILY 04/05/24 oxycodone 5 mg tablet 5 mg PO Q6H PRN 04/05/24 rosuvastatin 10 mg tablet 10 mg PO DAILY 04/05/24 sitagliptin phosphate 100 mg 100 mg PO DAILY 04/05/24 tablet (Januvia) tamsulosin 0.4 mg capsule 0.4 mg PO DAILY 04/05/24 torsemide 20 mg tablet 20 mg PO BID 04/05/24 collagenase clostridium histo. 250 1 applic topical DAILY #30 grams 04/14/24 unit/gram topical ointment (Santyl) lidocaine 5 % topical cream 1 applic topical BID pain #15 grams 04/19/24 Current Visit Medications: Current Medications Generic Name Dose Route Start Last Admin Trade Name Freq PRN Reason Stop Dose Admin Ringer's Solution 1,000 mls @ 30 mls/hr 05/03/24 06:00 IV 05/03/24 23:59 INFUSION RAFIA Cefazolin Sodium 3,000 mg/ 100 mls @ 200 mls/hr 05/03/24 06:00 Sodium Chloride IV 05/03/24 23:59 PREOP RAFIA IV Miscellaneous Supplies 1 each 05/03/24 06:00 Iv Access IV 05/03/24 23:59 DIRECTED RAFIA Sodium Chloride 0 ml 05/03/24 06:00 Normal Saline Flush 10 Ml Syr IV 05/03/24 23:59 PRN PRN Sodium Chloride 0 ml 05/03/24 06:00 Normal Saline 10 Ml Vial IJ 05/03/24 23:59 DIRECTED PRN Sterile Water 0 ml 05/03/24 06:00 Water,Injection,Sterile 10 Ml Vial IJ 05/03/24 23:59 DIRECTED PRN PFSH Active Problems Active Problems: Problem Status Onset Code Pressure ulcer with necrosis of soft tissues through to underlying muscle, tendon, or bone Acute L89.94 Pain in right ankle Acute M25.571 Diabetic ulcer of left ankle Acute E11.622, L97.329 Nonhealing ulcer of left lower extremity Acute L97.929 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 Acute L97.322 Ulcer of left lower extremity Acute L97.929 Mixed hyperlipidemia Acute E78.2 Enlarged prostate Acute N40.0 HTN (hypertension) Chronic I10 Hyperparathyroidism Acute E21.3 Hypercalcemia Acute E83.52 Gout Chronic M10.9 Glaucoma Chronic H40.9 Enthesopathy of hip region Acute M76.899 Stage 3 chronic kidney disease due to benign hypertension Acute I12.9, N18.30 CHF (congestive heart failure) Chronic I50.9 Atopic dermatitis Acute L20.9 Arthritis Acute M19.90 Anemia in CKD (chronic kidney disease) Acute N18.9, D63.1 Acid reflux Chronic K21.9 Type 2 diabetes mellitus Acute E11.9 Medical History Medical History Pemphigoid, benign mucous membrane ROXANA (acute kidney injury) Psychosexual dysfunction with inhibited sexual excitement Olecranon bursitis Surgical History Surgical History History of testicular surgery History of shoulder surgery right History of varicose vein ligation Tobacco Smoking/Tobacco Use Status: Former Tobacco Use Alcohol Alcohol Intake: current Alcohol intake frequency: a few times a month Substance Use Substance use: Never Vital Signs and Lab Results Vital Signs Most Recent Vital Signs in EMR: Temp Pulse Resp BP Pulse Ox 35.8 C L 73 18 128/54 L 96 05/03/24 07:02 05/03/24 07:02 05/03/24 07:02 05/03/24 07:02 05/03/24 07:02 Lab Results Blood Type / Crossmatch: No Data to Display Complete Blood Count: White Blood Count 7.60 10^3/uL (4.4-10.8) 04/14/24 09:28 Red Blood Count 4.44 10^6/uL (4.36-5.78) 04/14/24 09:28 Hemoglobin 13.3 g/dL (13.5-17.5) L 04/14/24 09:28 Hematocrit 41.5 % (40.0-50.0) 04/14/24 09:28 Platelet Count 170 10^3/uL (130-400) 04/14/24 09:28 Complete Metabolic Panel: Sodium 143 mmol/L (136-145) 04/14/24 09:28 Potassium 4.7 mmol/L (3.5-5.1) 04/14/24 09:28 Chloride 108 mmol/L (98-107) H 04/14/24 09:28 Carbon Dioxide 25.1 mmol/L (21.0-32.0) 04/14/24 09:28 BUN 27 mg/dL (7-18) H 04/14/24 09:28 Creatinine 1.8 mg/dL (0.70-1.30) H 04/14/24 09:28 Est GFR (CKD-EPI 2020) 38.77 (mL/min/1.73m2) 04/14/24 09:28 Calcium 9.6 mg/dL (8.5-10.1) 04/14/24 09:28 Albumin 3.2 g/dL (3.4-5.0) L 04/14/24 09:28 Glucose 201 mg/dL (74-106) H 04/14/24 09:28 Hemoglobin A1c 6.7 % (4.5-5.7) H 04/09/24 11:14 Liver Function Panel: Alanine Aminotransferase (ALT/SGPT) 24 U/L (16-63) 04/14/24 09: 28 Aspartate Amino Transf (AST/SGOT) 20 U/L (15-37) 04/14/24 09:28 Coagulation Panel: No Data to Display Cardiac Panel: No Data to Display Arterial Blood Gas: No Data to Display Venous Blood Gas: No Data to Display Pancreas Panel: No Data to Display Thyroid Panel: No Data to Display Infectious Disease: No Data to Display Blood Cultures: No Data to Display Toxicology Panel: No Data to Display Anesthesia Assessment and Plan Anesthesia History Personal History: No History of Anesthesia Complications Family History: No Family History of Anesthesia Complications Exercise Tolerance Exercise Tolerance: Metabolic Equivalents>4 Pertinent Negatives Pertinent Negatives: No Symptoms of GERD Cardiac & Pulmonary Exam Cardiac Exam: Normal S1/S2 Heart Sounds Pulmonary Exam: Clear Bilateral Breath Sounds Implantable Cardiac Device Does patient have a Pacemaker or an ICD?: No Airway Exam Known Difficult Airway: No Mallampati Class: 2 Mouth Opening: Normal (> 3cm) Thyromental Distance: Greater than 3 cm Neck Range of Motion: Full ROM Neck Circumference: Thick Teeth Condition: Normal Dentition ASA Classification ASA Score: ASA 2 Emergency Case?: No NPO Status NPO Status: NPO Clears >2 hours, Solids >8 hours Anesthesia Plan Resuscitation Status: Full Code Anesthesia Technique: General Anesthesia Airway Planned: Natural Airway Monitors Used: Standard Monitors
[2024-05-03 07:07] VITALS: BMI 33.4
[2024-05-03] MEDS: Normal Saline Flush 10 ML SYR IV (07:15)
[2024-05-03] MEDS: ceFAZolin 3,000 MG in Normal Saline 100 ML 200 MG IV (08:08)
[2024-05-03] MEDS: Lidocaine 1% Pres-Free 30 ML VIAL (08:40)
--- NOTE | 2024-05-03 09:02 | PDOC.DSDIS_ITS ---
Date of service: 05/03/24 Time of Service: 08:00 Discharge Plan Disposition Patient Disposition: Home Condition: Stable Discharge Details Attending Provider: Kitty Mccoy Primary Care Provider: Tommie Metzger [place] Meds and New Rx's Prescriptions: No Action allopurinol 300 mg tablet 300 mg PO DAILY amlodipine 10 mg tablet 10 mg PO HS colchicine 0.6 mg tablet 0.6 mg PO DAILY folic acid 1 mg tablet 1 mg PO DAILY gemfibrozil 600 mg tablet 600 mg PO DAILY Januvia 100 mg tablet 100 mg PO DAILY Jardiance 10 mg tablet 10 mg PO DAILY insulin glargine [Lantus Solostar U-100 Insulin] 100 unit/mL (3 mL) insulin pen 60 unit subcut HS metoprolol tartrate 50 mg tablet 50 mg PO BID multivitamin Tablet 1 tab PO DAILY insulin aspart U-100 [Novolog U-100 Insulin aspart] 100 unit/mL solution 13 unit subcut TID Rx Instructions: AC, TID olmesartan 20 mg tablet 20 mg PO DAILY rosuvastatin 10 mg tablet 10 mg PO DAILY oxycodone 5 mg tablet 5 mg PO Q6H PRN tamsulosin 0.4 mg capsule 0.4 mg PO DAILY torsemide 20 mg tablet 20 mg PO BID Santyl 250 unit/gram ointment 1 applic topical DAILY Qty: 30 5RF Rx Instructions: Left Heel wound measurements: 4.8cm x 3.5cm. L lateral Ankle wound measurements: 6.6cm x 3.0cm lidocaine 5 % cream 1 applic topical BID Qty: 15 0RF Discharge Instructions Additional Instructions: Please keep your dressings clean, dry and intact. Do not let the dressings get wet. Please rest, ice and elevate the left lower extremity. If you have severe pain to the left foot, you may loosen only the brown outer layer of the dressin g. Follow-up appointment on . Stand Alone Forms: Podiatry Instructions-[facility]U Activity:: Elevate Remove Dressings/Wound Care:: Do Not Remove Shower/Bathe:: Cover Diet:: Normal Diet Discharge Orders Discharge Orders: Discharge Order (Routine); Ordered 05/03/24 Ordered By: Kitty Mccoy DS: Diagnosis Discharge Diagnosis (1) Pressure ulcer with necrosis of soft tissues through to underlying muscle, tendon, or bone: Status: Acute (2) Diabetic ulcer of left ankle: Status: Acute (3) Nonhealing ulcer of left lower extremity: Status: Acute (4) 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: Status: Acute (5) Ulcer of left lower extremity: Status: Acute
[2024-05-03 09:03] VITALS: BP 95/55; PULSE 82; RESP 18; TEMP 36.6; O2SAT 93
--- NOTE | 2024-05-03 09:04 | ROE_ITS ---
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 2: Chronic, nonhealing, full- thickness ulcer lateral aspect of the left ankle to the level of subcutaneous tissue. POST-OP DIAGNOSIS: same PROCEDURE: Excisional wound debridement including subcutaneous tissue and tendon, left ankle Graft application, left ankle SURGEON: Kitty Mccoy ANESTHESIA TYPE: Local By Surgeon (20 mL lidocaine 1% plain pre op) Refer to Anesthesia Record ESTIMATED BLOOD LOSS: 2 PATHOLOGY: none sent COMPLICATIONS: None Patient was transported to: same day Patient's condition: stable Implants: AmnioExcel, amniotic Allograft membrane 5x5 cm Cytal Wound Matrix 2-Layer 5x5cm MicroMatrix UBM Standard Particulate 200mg Indications: 73-year-old male patient with nonhealing ulcers to the left ankle posteriorly and laterally. Posterior ulceration with Achilles tendon exposed and with necrosis, small amount of granulation tissue noted to the Achilles tendon. I recommend excisional debridement to the lateral wound to heal. Consent form signed, reviewed and in chart. No complications noted to be possible Findings: Postdebridement measurements: 4.0 x 3.5 x 0.4 cm Post debridement measurements: 2.5 x 1.2 x 0.2 cm Procedure Description: Patient was identified in preop holding. Site was marked. Consent form signed reviewed in chart. Patient was brought to the operating room placed in supine position in the operating table with the anesthesia team. After induction of anesthesia local anesthesia was obtained using 20 mL of lidocaine 1% plain preoperatively. The left lower extremity was then scrubbed, prepped and draped in the usual aseptic manner. The Versajet was then primed. Attention was then directed to the lateral aspect of the left ankle where a full-thickness ulceration was noted. The Versajet was used to excisionally debride all necrotic tissue from this ulcer. Attention was then directed to the posterior aspect of the left ankle where full-thickness ulcer with Achilles tendon exposed was noted. The Versajet was then used to excisionally debride all necrotic, nonviable subcutaneous tissue as well as necrotic tendon. At this time, the wound bed was considered prepared for graft application. Amnio XL, amniotic allograft membrane was applied to the lateral ulceration. Next, micro matrix was applied to the posterior ulceration followed by Cytal, remaining amniotic graft was added to this as well. Next, dressings were then applied with Adaptic secured with Steri-Strips, 4 x 4, Kerlix, Profore dressing. Patient tolerated the procedure and anesthesia well and was in stable and vascular status intact to the left lower extremity. Patient was transferred to same-day for further monitoring. He will be discharged home when stable. Patient is to follow-up with me in office on .
[2024-05-03 09:24] VITALS: BP 131/66; PULSE 79; RESP 18; TEMP 35.8; O2SAT 94
--- NOTE | 2024-05-03 09:55 | W.ANESPOSTOP ---
Postoperative Evaluation Date, Time and Location Date Performed: 05/03/24 Time Performed: 09:30 Patient Location: Day Surgery Unit Vital Signs Most Recent Imported Vital Signs: Most Recent Vital Signs Temp Pulse Resp BP Pulse Ox 35.8 C L 79 18 131/66 94 05/03/24 09:24 05/03/24 09:24 05/03/24 09:24 05/03/24 09:24 05/03/24 09:24 Pain Score Most Recent Pain Score: Most Recent Pain Score Pain Level 0 05/03/24 09:24 Assessment Mental Status: Awake (Alert & Oriented to Patient Baseline) Airway and Respiratory Function: Patent airway with normal (patient baseline) respiratory exam Cardiovascular Function: Hemodynamically Stable Hydration Status: Adequately Hydrated Nausea & Vomiting: No Nausea or Vomiting Pain: Pt. Denies Any Pain Peripheral Nerve Block: Patient did not receive a nerve block
== END 2024-05-03 09:44 | disposition home or self-care (01) ==
PROVIDERS: PCP Family Medicine; Visit Provider Podiatrist
PROC: (CPT 15272; principal; 2024-05-03 08:00)
DX: E11.622 Type 2 diabetes mellitus with other skin ulcer (principal); L97.322 Non-pressure chronic ulcer of left ankle with fat layer exposed; I13.0 Hypertensive heart and chronic kidney disease with heart failure and stage 1 through stage 4 chronic kidney disease, or unspecified chronic kidney disease; N18.30 Chronic kidney disease, stage 3 unspecified; I50.9 Heart failure, unspecified; D63.1 Anemia in chronic kidney disease
CPT/HCPCS: 15272; 15271; 15002; Q4137; Q4166; Q4118; 00123; J0690; J1100; J2371; J2405; J2704

== ENCOUNTER → 2024-10-21 09:47 | Outpatient (BNVA) | payer MEDICARE, BC, SELFPAY | PROVIDERS: PCP Family Medicine; Referring Provider Family Medicine; Visit Provider Podiatrist | DX: Z98.890 Other specified postprocedural states (principal); L97.322 Non-pressure chronic ulcer of left ankle with fat layer exposed; E11.622 Type 2 diabetes mellitus with other skin ulcer; I12.9 Hypertensive chronic kidney disease with stage 1 through stage 4 chronic kidney disease, or unspecified chronic kidney disease; N18.30 Chronic kidney disease, stage 3 unspecified; I50.9 Heart failure, unspecified; D63.1 Anemia in chronic kidney disease | CPT/HCPCS: 11042 ==

== ENCOUNTER → 2024-11-08 12:46 | Outpatient (BNVA) | payer MEDICARE, BC, SELFPAY | PROVIDERS: PCP Family Medicine; Referring Provider Family Medicine; Visit Provider Podiatrist | DX: Z98.890 Other specified postprocedural states (principal); L97.322 Non-pressure chronic ulcer of left ankle with fat layer exposed; I12.9 Hypertensive chronic kidney disease with stage 1 through stage 4 chronic kidney disease, or unspecified chronic kidney disease; N18.30 Chronic kidney disease, stage 3 unspecified; D63.1 Anemia in chronic kidney disease; E11.622 Type 2 diabetes mellitus with other skin ulcer; I50.9 Heart failure, unspecified; I87.2 Venous insufficiency (chronic) (peripheral) | CPT/HCPCS: 29581 ==

== ENCOUNTER → 2024-11-30 12:50 | Outpatient (BNVA) | payer MEDICARE, BC, SELFPAY | PROVIDERS: PCP Family Medicine; Referring Provider Family Medicine; Visit Provider Podiatrist | DX: Z98.890 Other specified postprocedural states (principal); L97.322 Non-pressure chronic ulcer of left ankle with fat layer exposed; E11.622 Type 2 diabetes mellitus with other skin ulcer; I12.9 Hypertensive chronic kidney disease with stage 1 through stage 4 chronic kidney disease, or unspecified chronic kidney disease; N18.30 Chronic kidney disease, stage 3 unspecified; I50.9 Heart failure, unspecified; D63.1 Anemia in chronic kidney disease; I87.2 Venous insufficiency (chronic) (peripheral) | CPT/HCPCS: 29580; 29850 ==

== ENCOUNTER → 2024-12-29 12:57 | Outpatient (BNVA) | payer MEDICARE, BC, SELFPAY | PROVIDERS: PCP Family Medicine; Referring Provider Family Medicine; Visit Provider Podiatrist | DX: Z98.890 Other specified postprocedural states (principal); E11.622 Type 2 diabetes mellitus with other skin ulcer; L97.322 Non-pressure chronic ulcer of left ankle with fat layer exposed; I12.9 Hypertensive chronic kidney disease with stage 1 through stage 4 chronic kidney disease, or unspecified chronic kidney disease; N18.30 Chronic kidney disease, stage 3 unspecified; D63.1 Anemia in chronic kidney disease; I50.9 Heart failure, unspecified; I87.2 Venous insufficiency (chronic) (peripheral) | CPT/HCPCS: 11042 ==

== ENCOUNTER → 2025-01-12 09:30 | Outpatient (BNVA) | payer MEDICARE, BC, SELFPAY | PROVIDERS: PCP Family Medicine; Referring Provider Family Medicine; Visit Provider Podiatrist | DX: L97.322 Non-pressure chronic ulcer of left ankle with fat layer exposed (principal); E11.622 Type 2 diabetes mellitus with other skin ulcer; D63.1 Anemia in chronic kidney disease; I12.9 Hypertensive chronic kidney disease with stage 1 through stage 4 chronic kidney disease, or unspecified chronic kidney disease; N18.30 Chronic kidney disease, stage 3 unspecified; I50.9 Heart failure, unspecified; I87.2 Venous insufficiency (chronic) (peripheral) | CPT/HCPCS: 99213; 29580; 29850 ==

== ENCOUNTER → 2025-02-15 09:25 | Outpatient (BNVA) | payer MEDICARE, BC, SELFPAY | PROVIDERS: PCP Family Medicine; Referring Provider Family Medicine; Visit Provider Podiatrist | DX: E11.622 Type 2 diabetes mellitus with other skin ulcer (principal); L97.322 Non-pressure chronic ulcer of left ankle with fat layer exposed; I83.023 Varicose veins of left lower extremity with ulcer of ankle; I12.9 Hypertensive chronic kidney disease with stage 1 through stage 4 chronic kidney disease, or unspecified chronic kidney disease; N18.30 Chronic kidney disease, stage 3 unspecified; I50.9 Heart failure, unspecified; I87.2 Venous insufficiency (chronic) (peripheral); N18.9 Chronic kidney disease, unspecified; D63.1 Anemia in chronic kidney disease; Z98.890 Other specified postprocedural states | CPT/HCPCS: 11042; 29580; 29850 ==

== ENCOUNTER → 2025-03-02 12:55 | Outpatient (BNVA) | payer MEDICARE, BC, SELFPAY | PROVIDERS: PCP Family Medicine; Referring Provider Family Medicine; Visit Provider Podiatrist | DX: I83.023 Varicose veins of left lower extremity with ulcer of ankle (principal); L97.322 Non-pressure chronic ulcer of left ankle with fat layer exposed; Z98.890 Other specified postprocedural states; E11.622 Type 2 diabetes mellitus with other skin ulcer; E11.22 Type 2 diabetes mellitus with diabetic chronic kidney disease; I12.9 Hypertensive chronic kidney disease with stage 1 through stage 4 chronic kidney disease, or unspecified chronic kidney disease; N18.30 Chronic kidney disease, stage 3 unspecified; I50.9 Heart failure, unspecified; I87.2 Venous insufficiency (chronic) (peripheral); D63.1 Anemia in chronic kidney disease | CPT/HCPCS: 11042 ==

== ENCOUNTER → 2025-03-23 12:56 | Outpatient (BNVA) | payer MEDICARE, BC, SELFPAY | PROVIDERS: PCP Family Medicine; Referring Provider Family Medicine; Visit Provider Podiatrist | DX: L97.322 Non-pressure chronic ulcer of left ankle with fat layer exposed (principal); I83.023 Varicose veins of left lower extremity with ulcer of ankle; L03.116 Cellulitis of left lower limb; E11.622 Type 2 diabetes mellitus with other skin ulcer; Z98.890 Other specified postprocedural states; I12.9 Hypertensive chronic kidney disease with stage 1 through stage 4 chronic kidney disease, or unspecified chronic kidney disease; N18.30 Chronic kidney disease, stage 3 unspecified; I50.9 Heart failure, unspecified; I87.2 Venous insufficiency (chronic) (peripheral); D63.1 Anemia in chronic kidney disease; M79.671 Pain in right foot; S90.31XD Contusion of right foot, subsequent encounter; X58.XXXD Exposure to other specified factors, subsequent encounter | CPT/HCPCS: 11042 ==

== ENCOUNTER → 2025-03-30 13:14 | Outpatient (BNVA) | payer MEDICARE, BC, SELFPAY | PROVIDERS: PCP Family Medicine; Referring Provider Family Medicine; Visit Provider Podiatrist | DX: L97.322 Non-pressure chronic ulcer of left ankle with fat layer exposed (principal); M79.671 Pain in right foot; S90.31XA Contusion of right foot, initial encounter; Z98.890 Other specified postprocedural states; E11.622 Type 2 diabetes mellitus with other skin ulcer; I12.9 Hypertensive chronic kidney disease with stage 1 through stage 4 chronic kidney disease, or unspecified chronic kidney disease; N18.30 Chronic kidney disease, stage 3 unspecified; E11.59 Type 2 diabetes mellitus with other circulatory complications; I10 Essential (primary) hypertension; I50.9 Heart failure, unspecified; I97.2 Postmastectomy lymphedema syndrome; D63.1 Anemia in chronic kidney disease; X58.XXXA Exposure to other specified factors, initial encounter | CPT/HCPCS: 11042; 28010; 29581 ==

== ENCOUNTER → 2025-04-06 12:53 | Outpatient (BNVA) | payer MEDICARE, BC, SELFPAY | PROVIDERS: PCP Family Medicine; Referring Provider Family Medicine; Visit Provider Podiatrist | DX: M20.41 Other hammer toe(s) (acquired), right foot (principal); M79.671 Pain in right foot; I83.023 Varicose veins of left lower extremity with ulcer of ankle; L97.322 Non-pressure chronic ulcer of left ankle with fat layer exposed; Z98.890 Other specified postprocedural states; E11.622 Type 2 diabetes mellitus with other skin ulcer; I12.9 Hypertensive chronic kidney disease with stage 1 through stage 4 chronic kidney disease, or unspecified chronic kidney disease; N18.30 Chronic kidney disease, stage 3 unspecified; I50.9 Heart failure, unspecified; I87.2 Venous insufficiency (chronic) (peripheral); D63.1 Anemia in chronic kidney disease | CPT/HCPCS: 99213 ==

== ENCOUNTER → 2025-04-20 13:02 | Outpatient (BNVA) | payer MEDICARE, BC, SELFPAY | PROVIDERS: PCP Family Medicine; Referring Provider Family Medicine; Visit Provider Podiatrist | DX: Z98.890 Other specified postprocedural states (principal); L97.322 Non-pressure chronic ulcer of left ankle with fat layer exposed; E11.622 Type 2 diabetes mellitus with other skin ulcer; I12.9 Hypertensive chronic kidney disease with stage 1 through stage 4 chronic kidney disease, or unspecified chronic kidney disease; E11.22 Type 2 diabetes mellitus with diabetic chronic kidney disease; N18.30 Chronic kidney disease, stage 3 unspecified; D63.1 Anemia in chronic kidney disease; I87.2 Venous insufficiency (chronic) (peripheral); I50.9 Heart failure, unspecified; I83.023 Varicose veins of left lower extremity with ulcer of ankle; M20.41 Other hammer toe(s) (acquired), right foot; M79.671 Pain in right foot; L84 Corns and callosities | CPT/HCPCS: 99213; 11055 ==

== ENCOUNTER → 2025-05-18 13:33 | Outpatient (BNVA) | payer MEDICARE, BC, SELFPAY | PROVIDERS: PCP Family Medicine; Referring Provider Family Medicine; Visit Provider Podiatrist | DX: M20.41 Other hammer toe(s) (acquired), right foot (principal); M79.671 Pain in right foot; I83.023 Varicose veins of left lower extremity with ulcer of ankle; L97.322 Non-pressure chronic ulcer of left ankle with fat layer exposed; I12.9 Hypertensive chronic kidney disease with stage 1 through stage 4 chronic kidney disease, or unspecified chronic kidney disease; E11.22 Type 2 diabetes mellitus with diabetic chronic kidney disease; N18.30 Chronic kidney disease, stage 3 unspecified; I50.9 Heart failure, unspecified; I87.2 Venous insufficiency (chronic) (peripheral); D63.1 Anemia in chronic kidney disease | CPT/HCPCS: 28010 ==

== ENCOUNTER → 2025-06-09 13:05 | Outpatient (BNVA) | payer MEDICARE, BC, SELFPAY | PROVIDERS: PCP Family Medicine; Referring Provider Family Medicine; Visit Provider Podiatrist | DX: Z98.890 Other specified postprocedural states (principal); M20.41 Other hammer toe(s) (acquired), right foot; M79.671 Pain in right foot; I83.023 Varicose veins of left lower extremity with ulcer of ankle; L97.322 Non-pressure chronic ulcer of left ankle with fat layer exposed; E11.622 Type 2 diabetes mellitus with other skin ulcer; E11.42 Type 2 diabetes mellitus with diabetic polyneuropathy; I12.9 Hypertensive chronic kidney disease with stage 1 through stage 4 chronic kidney disease, or unspecified chronic kidney disease; N18.30 Chronic kidney disease, stage 3 unspecified; I50.9 Heart failure, unspecified; I87.2 Venous insufficiency (chronic) (peripheral); D63.1 Anemia in chronic kidney disease; L84 Corns and callosities | CPT/HCPCS: 99213 ==